=== PATIENT | male | born 1980 | race Caucasian/White ===

== ENCOUNTER 2022-11-08 20:06 | Emergency (ER) | payer SELFPAY ==
[~2022-11-08] VITALS: Ht 182.9 cm; Wt 75.0 kg
[2022-11-08 21:20] VITALS: BP 120/88
[2022-11-08 21:30] VITALS: BP 128/82
[2022-11-08 21:45] VITALS: BP 132/81
[2022-11-08] MEDS ORDERED: CLEOCIN300 MG PO (21:59)
[2022-11-08] MEDS ORDERED: LORTAB 1010 MG PO (21:59)
[2022-11-08 22:00] VITALS: BP 138/85
[2022-11-08 22:05] VITALS: BP 138/85
== END 2022-11-08 23:05 | disposition home or self-care (01) | DRG 159 ==
LOC: ED 20:06
DX: K04.7 Periapical abscess without sinus (principal); K02.9 Dental caries, unspecified; F31.9 Bipolar disorder, unspecified; F17.210 Nicotine dependence, cigarettes, uncomplicated